=== PATIENT | female | born 1950 | race Caucasian/White ===

== ENCOUNTER 2020-09-23 09:09 | Emergency (ER) | payer BC ==
[2020-09-23 10:41] LABS: Protime INR 0.97
[2020-09-23 10:47] LABS: Absolute Lymphocytes (CBC) 1.2 K/uL (0.7-4.9); Basophils % 0.5 % (0-1.3); Hematocrit 47.1 % (36.0-45.0); Lymphocytes % 10.2 % (15.3-44.8); MPV 8.6 fL (7.6-11.3)
[2020-09-23 10:48] LABS: Urine Bacteria 20-50 /HPF (<20); Urine RBC <5 /HPF (NONE SEEN)
[2020-09-23] MEDS ORDERED: NA CHLORIDE 0.9% 0 ML ONE (10:58)
[2020-09-23 10:59] LABS: ALT/SGPT 32 U/L (12-78); AST/SGOT 21 U/L (15-37); Albumin 3.8 g/dL (3.4-5.0); Alkaline Phosphatase 101 U/L (45-117); BUN Blood Urea Nitrogen 22 mg/dL (7-18); Bicarbonate 28 mmol/L (21-32); Bilirubin Direct 0.3 mg/dL (0-0.2); Bilirubin Total 1.6 mg/dL (0.2-1.0); Glucose Level 164 mg/dL (74-106); Magnesium 2.4 mg/dL (1.8-2.4); NT PRO-BNP 109 pg/mL (<125); Potassium 3.5 mmol/L (3.5-5.1); Protein, Total 7.8 g/dL (6.4-8.2); Sodium Level 138 mmol/L (136-145); Troponin (Emerg Dept Use Only) < 0.02 ng/mL (0.0-0.045)
--- NOTE | 2020-09-23 11:40 | RAD REPORT ---
EXAM DESCRIPTION: RAD - Chest Single View - 09/23/2020 10:45 am CLINICAL HISTORY: abdominal pain Chest pain. COMPARISON: No comparisons FINDINGS: Portable technique limits examination quality. The lungs are grossly clear. The heart is normal in size. No displaced fractures. IMPRESSION: No acute intrathoracic process suspected.
[2020-09-23] MEDS ORDERED: NA CHLORIDE 0.9% 1,000 ML ONE (12:04)
[2020-09-23] MEDS ORDERED: CIPROFLOXACIN 400mg IV 400 MG/200 ML BAG IV ONE (12:09)
--- NOTE | 2020-09-23 12:11 | RAD REPORT ---
EXAM DESCRIPTION: CTAbdomen Pelvis W Contrast - 09/23/2020 12:00 pm CLINICAL HISTORY: Abdominal pain. ABD PAIN COMPARISON: No comparisons TECHNIQUE: Biphasic CT imaging of the abdomen and pelvis was performed with 100 ml non-ionic IV cont rast. All CT scans are performed using dose optimization technique as appropriate and may include automated exposure control or mA/KV adjustment according to patient size. FINDINGS: Mild linear opacities in both posterior lung bases noted. The liver, spleen, pancreas, adrenal glands and kidneys are within normal limits. Several benign para pelvic renal cysts noted. No bowel obstruction, free air, free fluid or abscess. Moderate colitis pattern is present particular ly involving the splenic flexure and descending colon. The sigmoid colon is also involved, however mi ldly less severely. The appendix is not identified as a discrete structure, however, no secondary fin dings of appendicitis are identified. No evidence of significant lymphadenopathy. Moderate lumbar degenerative changes are noted. IMPRESSION: Moderate acute colitis pattern involving the splenic flexure to the sigmoid colon.
[2020-09-23] MEDS ORDERED: METRONIDAZOLE 500mg IVPB 500 MG/100 ML BAG IV ONE (13:16)
[2020-09-23] MEDS ORDERED: DICYCLOMINE HCL 10 MG CAP ONE (13:16)
--- NOTE | 2020-09-23 14:17 | ER ---
Nurse's Notes [facility] Name: Rosalba Rodney Age: 70 yrs Sex: Female : 1950 Arrival Date: 09/23/2020 Time: 09:11 Bed 13 Private MD: Berlin Edgar Diagnosis: Left sided colitis with rectal bleeding Presentation: 09/23 09:48 Chief complaint: Patient states: BLOODY STOOL AND LOWER ABDOMINAL CRAMPING SINCE Y/D. bp Coronavirus screen: At this time, the client does not indicate any symptoms associated with coronavirus-19. Ebola Screen: No symptoms or risks identified at this time. Initial Sepsis Screen: Does the patient meet any 2 criteria? No. Patient's initial sepsis screen is negative. Does the patient have a suspected source of infection? No. Patient's initial sepsis screen is negative. Risk Assessment: Do you want to hurt yourself or someone else? Patient reports no desire to harm self or others. Onset of symptoms is unknown. 09:48 Method Of Arrival: Ambulatory bp 09:48 Acuity: ROBERT 3 bp Triage Assessment: 09:52 General: Appears in no apparent distress. uncomfortable, Behavior is cooperative, bp appropriate for age, anxious. Pain: Complains of pain in abdomen. EENT: No deficits noted. Neuro: No deficits noted. Cardiovascular: No deficits noted. Respiratory: No deficits noted. GI: Reports lower abdominal pain, diarrhea, rectal bleeding. : No signs and/or symptoms were reported regarding the genitourinary system. Derm: No deficits noted. Musculoskeletal: No deficits noted. Historical: - Allergies: 09:52 Codeine; bp 09:52 Lomotil; bp - Home Meds: 09:52 metoprolol tartrate 25 mg Oral tab 1 tab 2 times per day [Active]; enalapril maleate 10 bp mg Oral tab [Active]; Myrbetriq 50 mg oral Tb24 1 tab once daily [Active]; atorvastatin 20 mg oral tab 1 tab once daily [Active]; Jardiance 25 mg oral tab 1 tab once daily [Active]; - PMHx: 09:52 Diabetes - NIDDM; Hypertension; Arthritis; bp - Immunization history:: Adult Immunizations up to date. - Social history:: Smoking status: Patient denies any tobacco usage or history of. Screenin:54 Abuse screen: Denies threats or abuse. Denies injuries from another. Nutritional bp screening: No deficits noted. Tuberculosis screening: No symptoms or risk factors identified. Fall Risk None identified. Assessment: 09:54 General: SEE TRIAGE NOTE. bp 10:30 Reassessment: No changes from previously documented assessment. Patient and/or family bp updated on plan of care and expected duration. Pain level reassessed. Patient is alert, oriented x 3, equal unlabored respirations, skin warm/dry/pink. PO CONTRAST COMPLETE, CT NOTIFIED. 12:07 Reassessment: PT RETURNED FROM CT. bp 12:55 Reassessment: No changes from previously documented assessment. Patient and/or family bp updated on plan of care and expected duration. Pain level reassessed. Patient is alert, oriented x 3, equal unlabored respirations, skin warm/dry/pink. ABX INFUSING. 14:00 Reassessment: Patient appears in no apparent distress at this time. No changes from bp previously documented assessment. Patient and/or family updated on plan of care and expected duration. Pain level reassessed. Patient is alert, oriented x 3, equal unlabored respirations, skin warm/dry/pink. 15:29 Reassessment: PT D/C HOME AMBULATORY, DX WITH LEFT SIDED COLITIS. bp Vital Signs: 09:48 BP 127 / 88; Pulse 80; Resp 16; Temp 97.6; Pulse Ox 94% ; Weight 85.73 kg; Height 5 ft. bp 2 in. (157.48 cm); 10:30 BP 126 / 86; Pulse 74; Resp 16; Pulse Ox 94% ; bp 11:35 Pulse 77; Resp 17; Pulse Ox 94% ; bp 12:10 BP 130 / 94; Pulse 78; Resp 16; Pulse Ox 96% ; bp 13:15 BP 133 / 84; Pulse 76; Resp 16; Pulse Ox 95% ; bp 15:30 BP 111 / 67; Pulse 81; Resp 16; Temp 98.3; Pulse Ox 96% ; bp 09:48 Body Mass Index 34.57 (85.73 kg, 157.48 cm) bp ED Course: 09:11 Patient arrived in ED. ag5 09:11 Berlin Edgar MD is Private Physician. ag5 09:37 [facility]C [facility] snw 09:38 León Anderson MD is Attending Physician. snw 09:39 Jonah Barton, RN is Primary Nurse. bp 09:50 Triage completed. bp 09:52 Arm band placed on. bp 09:54 Patient has correct armband on for positive identification. Bed in low position. Call bp light in reach. Side rails up X2. 10:25 Initial lab(s) drawn, by me, sent to lab. jb1 10:25 Inserted saline lock: 22 gauge in right antecubital area, using aseptic technique. jb1 Blood collected. 10:45 XRAY Chest (1 view) In Process Unspecified. EDMS 10:50 COVID swab sent to lab. jb1 12:01 CT Abd/Pelvis - PO and IV Contrast In Process Unspecified. EDMS 14:16 Berlin Edgar MD is Referral Physician. snw 15:30 No provider procedures requiring assistance completed. IV discontinued, intact, bp bleeding controlled, No redness/swelling at site. Pressure dressing applied. Administered Medications: 10:30 Drug: NS 0.9% 1000 ml Route: IV; Rate: 125 ml/hr; Site: right forearm; bp 15:31 Follow up: IV Status: Completed infusion; IV Intake: 1000ml bp 11:45 Drug: Cipro 400 mg Volume: 200 ml; Route: IVPB; Infused Over: 60 mins; Site: right bp antecubital; 15:31 Follow up: IV Status: Completed infusion; IV Intake: 100ml bp 12:45 Drug: Flagyl 500 mg Volume: 100 ml; Route: IVPB; Rate: 200 ml/hr; Infused Over: 30 bp mins; Site: right antecubital; 15:31 Follow up: IV Status: Completed infusion bp 13:00 Drug: Bentyl 20 mg Route: PO; bp 15:32 Follow up: Response: No adverse reaction; Pain is decreased bp Intake: 15:31 IV: 1000ml; Total: 1000ml. bp 15:31 IV: 100ml; Total: 1100ml. bp Outcome: 14:16 Discharge ordered by . snw 15:30 Discharged to home ambulatory. bp 15:30 Condition: stable 15:30 Discharge instructions given to patient, Instructed on discharge instructions, follow up and referral plans. medication usage, Demonstrated understanding of instructions, follow-up care, medications, Prescriptions given X 3. 15:33 Patient left the ED. bp Addendum: 09/26/2020 09:29 Addendum: Culture Results: Positive urine culture. No further action required. Bacteria a a5 sensitive to prescribed antibiotic. Signatures: Dispatcher [employer] ED Earnest Chi jb1 Delisa Herring, CUSTOM FEED CORN OPERATOR-C CUSTOM FEED CORN OPERATOR-Csnw Malissa Roque, RN RN aa5 Jonah Barton, RN RN bp Leroy Kohler ag5 Corrections: (The following items were deleted from the chart) 09/23 11:08 10:00 Inserted saline lock: 22 gauge in right forearm, using aseptic technique. Blood jb1 collected. bp 11:08 11:07 Inserted saline lock: 22 gauge in right antecubital area, using aseptic jb1 technique. Blood collected. jb1 12:55 10:30 Reassessment: PO CONTRAST COMPLETE, CT NOTIFIED bp bp
--- NOTE | 2020-09-23 14:17 | EDPHYS ---
Physician Documentation [facility] Name: Rosalba Rodney Age: 70 yrs Sex: Female : 1950 Arrival Date: 09/23/2020 Time: 09:11 Bed 13 Private MD: Berlin Edgar ED Physician León Anderson HPI: 09/23 11:32 This 70 yrs old Female presents to ER via Ambulatory with complaints of snw Bloody Stools, Abdominal Pain. 11:32 Onset: The symptoms/episode began/occurred suddenly, yesterday. Associated signs and snw symptoms: Pertinent positives: abdominal pain, diarrhea. Modifying factors: The patient symptoms are alleviated by diarrhea, the patient symptoms are aggravated by nothing. The patient has not experienced similar symptoms in the past. It is unknown whether or not the patient has recently seen a physician. denies fever. Historical: - Allergies: 09:52 Codeine; bp 09:52 Lomotil; bp - Home Meds: 09:52 metoprolol tartrate 25 mg Oral tab 1 tab 2 times per day [Active]; enalapril maleate 10 bp mg Oral tab [Active]; Myrbetriq 50 mg oral Tb24 1 tab once daily [Active]; atorvastatin 20 mg oral tab 1 tab once daily [Active]; Jardiance 25 mg oral tab 1 tab once daily [Active]; - PMHx: 09:52 Diabetes - NIDDM; Hypertension; Arthritis; bp - Immunization history:: Adult Immunizations up to date. - Social history:: Smoking status: Patient denies any tobacco usage or history of. ROS: 11:31 Constitutional: Negative for fever, chills, and weight loss, Eyes: Negative for injury, snw pain, redness, and discharge, ENT: Negative for injury, pain, and discharge, Neck: Negative for injury, pain, and swelling, Cardiovascular: Negative for chest pain, palpitations, and edema, Respiratory: Negative for shortness of breath, cough, wheezing, and pleuritic chest pain, Back: Negative for injury and pain, : Negative for injury, bleeding, discharge, and swelling, MS/Extremity: Negative for injury and deformity, Skin: Negative for injury, rash, and discoloration, Neuro: Negative for headache, weakness, numbness, tingling, and seizure, Psych: Negative for depression, anxiety, suicide ideation, homicidal ideation, and hallucinations. 11:31 Abdomen/GI: Positive for abdominal pain, diarrhea, abdominal cramps, rectal bleeding. Exam: 10:18 ECG was reviewed by the Attending Physician. snw 11:29 Constitutional: This is a well developed, well nourished patient who is awake, alert, snw and in no acute distress. Head/Face: Normocephalic, atraumatic. Eyes: Pupils equal round and reactive to light, extra-ocular motions intact. Lids and lashes normal. Conjunctiva and sclera are non-icteric and not injected. Cornea within normal limits. Periorbital areas with no swelling, redness, or edema. ENT: Nares patent. No nasal discharge, no septal abnormalities noted. Tympanic membranes are normal and external auditory canals are clear. Oropharynx with no redness, swelling, or masses, exudates, or evidence of obstruction, uvula midline. Mucous membranes moist. Neck: Trachea midline, no thyromegaly or masses palpated, and no cervical lymphadenopathy. Supple, full range of motion without nuchal rigidity, or vertebral point tenderness. No Meningismus. Chest/axilla: Normal chest wall appearance and motion. Nontender with no deformity. No lesions are appreciated. Cardiovascular: Regular rate and rhythm with a normal S1 and S2. No gallops, murmurs, or rubs. Normal PMI, no JVD. No pulse deficits. Abdomen/GI: Soft, mildly tender to lower abdomen, with normal bowel sounds. No distension or tympany. No guarding or rebound. + guaiac bright red, no noted hemorrhoids/fissures Back: No spinal tenderness. No costovertebral tenderness. Full range of motion. Skin: Warm, dry with normal turgor. Normal color with no rashes, no lesions, and no evidence of cellulitis. MS/ Extremity: Pulses equal, no cyanosis. Neurovascular intact. Full, normal range of motion. Neuro: Awake and alert, GCS 15, oriented to person, place, time, and situation. Cranial nerves II-XII grossly intact. Motor strength 5/5 in all extremities. Sensory grossly intact. Cerebellar exam normal. Normal gait. 11:29 Respiratory: Lungs have equal breath sounds bilaterally, clear to auscultation and percussion. No rales, rhonchi or wheezes noted. No increased work of breathing, no retractions or nasal flaring. Vital Signs: 09:48 BP 127 / 88; Pulse 80; Resp 16; Temp 97.6; Pulse Ox 94% ; Weight 85.73 kg; Height 5 ft. bp 2 in. (157.48 cm); 10:30 BP 126 / 86; Pulse 74; Resp 16; Pulse Ox 94% ; bp 11:35 Pulse 77; Resp 17; Pulse Ox 94% ; bp 12:10 BP 130 / 94; Pulse 78; Resp 16; Pulse Ox 96% ; bp 13:15 BP 133 / 84; Pulse 76; Resp 16; Pulse Ox 95% ; bp 15:30 BP 111 / 67; Pulse 81; Resp 16; Temp 98.3; Pulse Ox 96% ; bp 09:48 Body Mass Index 34.57 (85.73 kg, 157.48 cm) bp MDM: 09:38 Patient medically screened. snw 14:25 Data reviewed: vital signs, nurses notes. Data interpreted: Pulse oximetry: on room air snw is 95 %. Interpretation: acceptable. Counseling: I had a detailed discussion with the patient and/or guardian regarding: the historical points, exam findings, and any diagnostic results supporting the discharge/admit diagnosis, the presence of at least one elevated blood pressure reading (>120/80) during this emergency department visit, lab results, radiology results, the need for outpatient follow up, to return to the emergency department if symptoms worsen or persist or if there are any questions or concerns that arise at home. Response to treatment: the patient's symptoms have mildly improved after treatment. Special discussion: Based on the patient's Hx, exam, and Dx evaluation, there is no indication for emergent surgery or inpatient Tx. It is understood by the patient/guardian that if the Sx's persist or worsen they need to return immediately for re-evaluation. I have referred the patient to see his PCP for further evaluation of high blood pressure. Based on the history and exam findings, there is no indication for further emergent testing or inpatient evaluation. I discussed with the patient/guardian the need to see the primary care provider for further evaluation of the symptoms. 09/23 09:55 Order name: Occult Blood--Ancillary; Complete Time: 13:09 eb 09/23 10:00 Order name: Basic Metabolic Panel; Complete Time: 11:02 snw 09/23 10:00 Order name: CBC with Diff; Complete Time: 11: snw 09/23 10:00 Order name: LFT's; Complete Time: 11: snw 09/23 10:00 Order name: Magnesium; Complete Time: 11: snw 09/23 10:00 Order name: NT PRO-BNP; Complete Time: 11:02 snw 09/23 10:00 Order name: PT-INR; Complete Time: 10:48 snw 09/23 10:00 Order name: Troponin (emerg Dept Use Only); Complete Time: 11: snw 09/23 10:19 Order name: Urine Culture eb 09/23 10:19 Order name: Urine Microscopic Only; Complete Time: 11:02 eb 09/23 13:41 Order name: SARS-COV-2 RT PCR; Complete Time: 13:43 EDMS 09/23 14:39 Order name: Urine Dipstick--Ancillary (enter results); Complete Time: 15:32 eb 09/23 10:00 Order name: XRAY Chest (1 view); Complete Time: 11:41 snw 09/23 10:00 Order name: EKG; Complete Time: 10: snw 09/23 10:00 Order name: Cardiac monitoring; Complete Time: 10:22 snw 09/23 10:00 Order name: EKG - Nurse/Tech; Complete Time: 10:22 snw 09/23 10:00 Order name: IV Saline Lock; Complete Time: 10:47 snw 09/23 10:00 Order name: Labs collected and sent; Complete Time: 10:47 snw 09/23 10:00 Order name: O2 Per Protocol; Complete Time: 10: snw 09/23 10:00 Order name: O2 Sat Monitoring; Complete Time: 10:02 snw 09/23 10:01 Order name: CT Abd/Pelvis - PO and IV Contrast; Complete Time: 12:25 snw EC:18 Rate is 78 beats/min. Rhythm is regular. QRS [place] is Normal. OR interval is normal. QRS snw interval is normal. T waves are Inverted. Clinical impression: NSR w/ Non-specific ST/T Changes. Administered Medications: 10:30 Drug: NS 0.9% 1000 ml Route: IV; Rate: 125 ml/hr; Site: right forearm; bp 15:31 Follow up: IV Status: Completed infusion; IV Intake: 1000ml bp 11:45 Drug: Cipro 400 mg Volume: 200 ml; Route: IVPB; Infused Over: 60 mins; Site: right bp antecubital; 15:31 Follow up: IV Status: Completed infusion; IV Intake: 100ml bp 12:45 Drug: Flagyl 500 mg Volume: 100 ml; Route: IVPB; Rate: 200 ml/hr; Infused Over: 30 bp mins; Site: right antecubital; 15:31 Follow up: IV Status: Completed infusion bp 13:00 Drug: Bentyl 20 mg Route: PO; bp 15:32 Follow up: Response: No adverse reaction; Pain is decreased bp Disposition: 15:43 Co-signature as Attending Physician, León Anderson MD. rn Disposition: 09/23/20 14:16 Discharged to Home. Impression: Left sided colitis with rectal bleeding. - Condition is Stable. - Discharge Instructions: Clear Liquid Diet, Adult, Colitis. - Prescriptions for Bentyl 20 mg Oral Tablet - take 1 tablet by ORAL route every 8 hours As needed; 20 tablet. Flagyl 500 mg Oral Tablet - take 1 tablet by ORAL route every 8 hours for 7 days; 21 tablet. Cipro 500 mg Oral Tablet - take 1 tablet by ORAL route every 12 hours for 7 days; 14 tablet. - Medication Reconciliation Form, Thank You Letter, Antibiotic Education, Prescription Opioid Use form. - Follow up: Berlin Edgar; When: 2 - 3 days; Reason: Recheck today's complaints, Continuance of care, Re-evaluation by your physician. Follow up: Emergency Department; When: As needed; Reason: Worsening of condition. Signatures: Dispatcher [employer] EDNM Delisa Herring, ORGAN PIPE VOICER-C ORGAN PIPE VOICER-Csnw León Anderson MD MD rn Oralia, Jonah, RN RN bp Corrections: (The following items were deleted from the chart) 12:43 10:44 CORONAVIRUS+MR.LAB.BRZ ordered. EDNM EDMS 15:26 10:20 URINE DIPSTICK--ANCILLARY+U.LAB.BRZ ordered. EDNM EDMS 15:26 10:48 URINE DIPSTICK--ANCILLARY+U.LAB.BRZ reviewed. [facility] EDMS 15:33 14:16 09/23/2020 14:16 Discharged to Home. Impression: Left sided colitis with rectal bp bleeding. Condition is Stable. Discharge Instructions: Clear Liquid Diet, Adult, Colitis. Prescriptions for Bentyl 20 mg Oral Tablet - take 1 tablet by ORAL route every 8 hours As needed; 20 tablet, Flagyl 500 mg Oral Tablet - take 1 tablet by ORAL route every 8 hours for 7 days; 21 tablet, Cipro 500 mg Oral Tablet - take 1 tablet by ORAL route every 12 hours for 7 days; 14 tablet. and Forms are Medication Reconciliation Form, Thank You Letter, Antibiotic Education, Prescription Opioid Use. Follow up: Berlin Edgar; When: 2 - 3 days; Reason: Recheck today's complaints, Continuance of care, Re-evaluation by your physician. Follow up: Emergency Department; When: As needed; Reason: Worsening of condition. snw
[2020-09-23 15:27] LABS: Urine Blood TRACE (NEG); Urine Glucose 3+ (NEG); Urine Protein NEGATIVE (NEG)
[2020-09-23 15:52] VITALS: BP 111/67; TEMP 98.3; O2SAT 96
--- NOTE | 2020-09-24 07:22 | EKG ---
Test Date: 2020-09-23 Test Time: 10:14:04 Tunnel Worker: FABIAN MEASUREMENT RESULTS: Intervals: Rate: 78 TN: 166 QRSD: 86 QT: 368 QTc: 419 [place]: P: 52 TN: 166 QRS: 32 T: 22 INTERPRETIVE STATEMENTS: Normal sinus rhythm Nonspecific T wave abnormality Abnormal ECG No previous ECG available for comparison Electronically Signed On 09-24-20 07:20:32 BIODIESEL DIVISION MANAGER by Tom Hooper
== END 2020-09-23 15:33 | disposition home or self-care (01) ==
LOC: ER 09:09
DX: K51.511 Left sided colitis with rectal bleeding (principal); Z20.822 Contact with and (suspected) exposure to COVID-19; I10 Essential (primary) hypertension; E11.9 Type 2 diabetes mellitus without complications; Z88.5 Allergy status to narcotic agent; Z88.8 Allergy status to other drugs, medicaments and biological substances
CPT/HCPCS: 96365; 96361; 93005; 87088; 85025; 87086; 80048; 36415; 83735; 85610; 80076; 82272; 84484; 83880; 74177; 71045; 99284; 96366; U0003; Q9967; J7030; J0744; 81003; 81015; 87077; 87186

== ENCOUNTER 2021-12-23 08:46 | Day surgery (SDC) | payer BC ==
--- NOTE | 2021-12-20 15:53 | RAD REPORT ---
EXAM DESCRIPTION: RAD - Chest Pa And Lat (2 Views) - 12/20/2021 3:43 pm CLINICAL HISTORY: Pre op pending hernia surgery COMPARISON: Portable 09/23/2020 TECHNIQUE: Frontal and lateral views of the chest were obtained. FINDINGS: The lungs are clear. Heart size is normal and central vasculature is within normal limit s. No pleural effusion or pneumothorax seen. No acute bony finding noted. No aortic abnormality. IMPRESSION: No acute cardiopulmonary process. No significant change from comparison study.
[2021-12-20 16:07] LABS: Absolute Lymphocytes (CBC) 1.6 K/uL (0.7-4.9); Lymphocytes % 32.9 % (15.3-44.8); MPV 8.4 fL (7.6-11.3); RBC Red Blood Cell Count 4.56 M/uL (3.86-4.86)
[2021-12-20 16:11] LABS: Potassium 3.6 mmol/L (3.5-5.1)
[2021-12-23] MEDS ORDERED: CEFAZOLIN SODIUM 1 GM/VIAL ONE (09:21)
[2021-12-23] MEDS ORDERED: NA CHLORIDE 0.9% 1,000 ML ONE ×2 (09:21→11:32)
[2021-12-23] MEDS ORDERED: NA CHLORIDE 0.9% 50 ML ONE (09:21)
[2021-12-23] MEDS ORDERED: CELECOXIB 100 MG CAPSULE ONE (09:27)
[2021-12-23] MEDS ORDERED: ACETAMINOPHEN 500 MG TAB ONE ×2 (09:28→09:37)
--- NOTE | 2021-12-23 09:45 | EKG ---
Test Date: 2021-12-20 Test Time: 14:17:04 Air Sealing Technician: RODRIGO MEASUREMENT RESULTS: Intervals: Rate: 80 SD: 168 QRSD: 86 QT: 360 QTc: 415 [place]: P: 74 SD: 168 QRS: 75 T: 68 INTERPRETIVE STATEMENTS: Normal sinus rhythm Possible Left atrial enlargement ST abnormality, possible digitalis effect Abnormal ECG Compared to ECG 09/23/2020 10:14:04 ST (T wave) deviation now present T-wave abnormality no longer present Electronically Signed On 12-23-21 09:36:26 CDT by Tom Hooper
[2021-12-23] MEDS ORDERED: propofoL 200 MG/20 ML VIAL IV ONE (09:55)
[2021-12-23] MEDS ORDERED: FENTANYL CITR 100 MCG/2 ML ONE (09:56)
[2021-12-23] MEDS ORDERED: MIDAZOLAM HCL 2 MG/2 ML INJ ONE (09:56)
[2021-12-23] MEDS ORDERED: ONDANSETRON 4 MG/2 ML VIAL ONE (09:57)
[2021-12-23] MEDS ORDERED: KETOROLAC 30 MG/ML INJ ONE (09:57)
[2021-12-23] MEDS ORDERED: dexAMETHasone 10 MG/ML VIAL ONE (09:57)
[2021-12-23] MEDS ORDERED: LIDOCAINE 2% MPF 5 ML VIAL ONE (09:57)
[2021-12-23] MEDS ORDERED: SUCCINYLCHOLINE 20 MG/ML (10 ML) IV ONE (10:04)
[2021-12-23] MEDS ORDERED: ROCURONIUM 50 MG/5 ML VIAL IV ONE (10:04)
[2021-12-23] MEDS ORDERED: GLYCOPYRROLATE 0.2 MG/ML SYR ONE (11:11)
[2021-12-23] MEDS ORDERED: NEOSTIGMINE 1 MG/ML -5 ML ONE (11:11)
--- NOTE | 2021-12-23 11:11 | P.BOP ---
Preoperative diagnosis: tender right inguinal hernia, umbilical hernia Postoperative diagnosis: same Primary procedure: 1. Laparoscopic repair of tender right incarc. inguinal hernia with mesh Secondary procedure: 2. Open repair of umbilical hernia Rolled Glass Crosscutter: Anat Becerra) Estimated blood loss: <10cc Specimen: sac Findings: as above Anesthesia: General Complications: None Implants: 3d mesh R Fluids & blood products: no blood Transferred to: Recovery Room Condition: Good
[2021-12-23] MEDS ORDERED: Mastisol Adhesive Liq ONE (11:14)
[2021-12-23] MEDS: HYDROMORPHONE HCL 1 MG/ML INJ ONE ×2 (11:31→11:38)
[2021-12-23] MEDS ORDERED: TRAMADOL HCL 50 MG TAB ONE (13:15)
[2021-12-23 14:08] VITALS: TEMP 96.5; O2SAT 97
[2021-12-23 14:10] VITALS: BP 111/64
--- NOTE | 2021-12-23 22:48 | OP ---
Date of Procedure: 12/23/2021 Surgeon: Brandan Chicas MD Supervisor [employer]: Anat Gtuiérrez. Preoperative Diagnoses: Tender right inguinal hernia, umbilical hernia. Postoperative Diagnoses: Tender right inguinal hernia, umbilical hernia. Procedures: 1.Laparoscopic repair of tender right inguinal hernia with mesh. 2.Open repair of umbilical hernia. Estimated Blood Loss: Less than 10 cc. Anesthesia: General plus local. Implant: 3D mesh, right side. Condition: Good. Indications: This is a case of a 71-year-old patient, who comes to us with 2 hernias, right inguinal and umbilical, both are tender. The right side incarcerated umbilical was reducible. Benefits, alt ernatives, and risks of repair fully explained which include, but not limited to infection, bleeding, damage to adjacent structures, anesthesia complication, recurrence, chronic pain, chronic numbness, DC, and even . She also understands this may not relieve any symptoms. She might need more doc n one surgical intervention. She also understands we might have to use mesh in that region. Pros an d cons of mesh were explained to her. All the questions were answered to her satisfaction. She sign ed a consent. Description Of Procedure: The patient was brought to the operating room, placed in supine position. Anesthesia was done without complication. A time-out was called. We identified the rodo. After th at, we made an incision in the infraumbilical region. Incision was carried down until we found the a nterior rectus sheath. The patient was placed in Trendelenburg position. The anterior rectus was op ened. The muscle retracted laterally to expose the posterior rectus sheath. The extraperitoneal spa ce was gently developed with blunt dissection and a balloon tipped Spacemaker trocar was placed in th at area directed towards the pubic symphysis, and with the scope inside, we proceeded to inflate the balloon. After that, we deflated the balloon and insufflated the region. We placed two 5 mm trocar, 1 above the pubic symphysis and another 1 midway between the first and second one. The preperitonea l space was further developed by exposing the inferior epigastric vessels keeping them anterior. Auditing Clerk per ligament was dissected laterally to the junction with the iliac veins. The dissection continued inferiorly to the iliopubic tract avoiding damage to the femoral branch of the genitofemoral nerve an d lateral femoral cutaneous nerve. A hernia sac was identified, indirect. The peritoneum was carefu lly retracted back into the peritoneal cavity. The hernia mesh was introduced through the trocar sit e to cover direct indirect spaces. We proceeded to secure that through the mesh with SorbaFix latera l and superior to the iliopubic tract and inferior and medial to the Rakesh ligament. After ensuring hemostasis, we proceeded to deflate the area holding the mesh in place. Removed the trocars under d irect visualization. Then closed the anterior rectus sheath with #1 Vicryl. After that, we directed our attention to the umbilical region. Incision was extended into the umbilical area. The umbilica l skin was removed from umbilical sac. Umbilical sac was removed. The fascia edges were identified, and then after that, the fascial edges were cleaned and closed with #1 Vicryl [id number] fashio n #1 multiple times. Subcutaneous tissue closed with 3-0 chromic. The skin was approximated with 3- 0 chromic in a subcuticular fashion and Steri-Strips on top. Sponge count and instrument counts tiara ect. The patient tolerated the procedure well. The patient was sent to recovery in stable condition . Disposition: Home. Activity: As tolerated. No heavy lifting. Follow up in my office in 1 week. Call for an appointme nt at [phone]. Keep area dry for 48 hours, then may shower. Keep Steri-Strip intact. Medications: Will include Ultracef q.4 hours p.r.n. pain and Bactrim DS p.o. b.i.d. NATALIE/DINORAH Voice ID: [id number] Report ID: [id number]
== END 2021-12-23 13:39 | disposition home or self-care (01) ==
LOC: OR 08:46
PROVIDERS: ATTEND Surgery
PROC: 0YU54JZ Supplement Right Inguinal Region with Synthetic Substitute, Percutaneous Endoscopic Approach (ICD-10-PCS; principal; 2021-12-23 10:15)
PROC: 0WQF0ZZ Repair Abdominal Wall, Open Approach (ICD-10-PCS; 2021-12-23 10:15)
DX: K40.90 Unilateral inguinal hernia, without obstruction or gangrene, not specified as recurrent (principal); K42.0 Umbilical hernia with obstruction, without gangrene; E11.9 Type 2 diabetes mellitus without complications; I10 Essential (primary) hypertension; E78.00 Pure hypercholesterolemia, unspecified; M54.9 Dorsalgia, unspecified; Z20.822 Contact with and (suspected) exposure to COVID-19
CPT/HCPCS: 49650; 49587; 93005; 85025; 80048; 36415; 82947 ×2; 88302; 71046; U0003; J2704; J0330; J2250; J3010; J1100; J1170; J2710; J7030 ×2; J2405; J0690